=== PATIENT | female | born 1975 | race Caucasian/White ===

== ENCOUNTER 2019-10-16 20:31 | Observation (INO) ==
--- OUTSIDE RECORDS SUMMARY | 2019-10-16 20:33 | External Medical Summary | Continuity of Care Document ---
:1975 Author Name Gillian Brizuela Address Unavailable Unavailable , Care Team Providers Name Role Phone Gillian Brizuela Unavailable 1@[employer] PCP, UNKNOWN Unavailable Unavailable Problems Active medical history not documented Allergies and Adverse Reactions Allergy history not documented Medications Medications not documented Procedures Procedures not documented Immunizations Immunizations not documented Plan of Treatment Planned Observations Planned Goals not documented Results No Known Results Results not documented
--- OUTSIDE RECORDS SUMMARY | 2019-10-16 20:34 | External Medical Summary | Continuity of Care Document ---
:1975 Author Name Gillian Brizuela Address Unavailable Unavailable , Care Team Providers Name Role Phone Gillian Brizuela Unavailable 1@[email or web address] PCP, UNKNOWN Unavailable Unavailable Problems Active medical history not documented Allergies and Adverse Reactions Allergy history not documented Medications Medications not documented Procedures Procedures not documented Immunizations Immunizations not documented Plan of Treatment Planned Observations Planned Goals not documented Results No Known Results Results not documented
[2019-10-16] MEDS ORDERED: KETOROLAC TROMETHAMINE 15 MG/ML VIAL IV STA (21:00)
[2019-10-16] MEDS ORDERED: ACETAMINOPHEN 1,000 MG/100 ML VIAL IV STA (21:00)
[2019-10-16] MEDS ORDERED: SODIUM CHLORIDE 0.9% 1000ML 1,000 ML IV SCH (21:00)
[2019-10-16 21:25] LABS: Pregnancy Test, Serum Negative (Negative)
[2019-10-16 21:36] LABS: Basophils # (auto) 0.01 K/uL (0-0.2); Basophils % (auto) 0.1 %; Eosinophils % (auto) 1.3 %; Hematocrit (blood only) 44.2 % (37-47); Hemoglobin 14.7 g/dL (12.0-16.0); Immature Granulocytes # (auto) 0.02 K/uL (0.00-0.02); Immature Granulocytes % (auto) 0.3 %; Lymphocytes % (auto) 26.5 %; Mean Corpuscular Hemoglobin 30.4 pg (25-34); Mean Corpuscular Hgb Conc 33.3 g/dL (32-36); Mean Corpuscular Volume 91.3 fL (80-100); Mean Platelet Volume 12.1 fL (7.4-10.4); Monocytes # (auto) 0.72 K/uL (0.11-0.59); Monocytes % (auto) 9.1 %; Neutrophils # (auto) 4.97 K/uL (1.4-6.5); Neutrophils % (auto) 62.7 %; Platelet Count 272 K/uL (130-400); RDW Coefficient of Variation 12.9 % (11.5-14.5); RDW Standard Deviation 43.2 fL (36.4-46.3); Red Blood Count 4.84 M/uL (4.2-5.4); White Blood Count 7.92 K/uL (4.8-10.8)
[2019-10-16 21:44] LABS: D Dimer 280 ug/L FEU (0-500); Partial Thromboplastin Ratio 0.9; Partial Thromboplastin Time 24.9 Seconds (21.0-31.0); Prothrombin Time 10.5 Seconds (9.0-12.0)
[2019-10-16 21:47] LABS: Alanine Aminotransferase 19 U/L (12-78); Albumin Level 3.9 gm/dl (3.4-5.0); Aspartate Aminotransferase 18 U/L (15-37); BUN Creatinine Ratio 13.7 (10-20); Blood Urea Nitrogen 13 mg/dl (7-18); Calcium 9.1 mg/dl (8.5-10.1); Carbon Dioxide 26 mmol/L (21-32); Chloride 108 mmol/L (98-107); Est GFR (African American) 88.9; Est GFR (Non-African American) 76.7; Glucose 121 mg/dl (70-99); Lipase 135 U/L (73-393); Magnesium 2.2 mg/dl (1.8-2.4); Potassium 4.1 mmol/L (3.5-5.1); Sodium 141 mmol/L (136-145)
[2019-10-16 22:01] LABS: Alkaline Phosphatase 97 U/L (45-117); Bilirubin,Total 0.3 mg/dl (0.2-1); Globulin 3.7 gm/dl (2.5-4.0); Phosphorus 2.4 mg/dl (2.5-4.9); Total Protein 7.6 gm/dl (6.4-8.2); Troponin I 0.247 ng/ml (0-0.045)
[2019-10-16] MEDS ORDERED: NITROGLYCERIN SL 0.4 MG/TAB TAB SL STA (22:10)
[2019-10-16] MEDS ORDERED: ASPIRIN CHEW 324 MG PO STA (22:10)
[2019-10-16] MEDS ORDERED: OPTIRAY 320 125ml IV ONE (22:43)
--- NOTE | 2019-10-16 23:18 | Emergency Department Note ---
Impression & Plan Chest pain, Hypertension, PVC's (premature ventricular contractions), Elevated troponin ED Provider Note NAME: MINERVA PALAFOX AGE: 43 SEX: F ARRIVES VIA: Walk-In INFORMANT: Patient ED PROVIDER(S): Samir Babcock MD CHIEF COMPLAINT: Chest pain PLAN: Disposition: Home MEDICAL DECISION MAKING: The patient is a pleasant 43-year-old woman with a past medical history of PVCs on metoprolol who presents emerge department acute onset constant chest pressure that began around 6 PM when she was out with her family tubing being pulled by a boat and gradually became increasingly more severe and presents emergency department tearful because of the pain. Denies SOB, n/v. Increases with movement but not exertion. No change when supine. Prior to today she denies any recent illness including denies fevers, chills, cough, congestion, nausea, vomiting, diarrhea. She denies any recent pattern of similar symptoms or exertional chest pain or shortness of breath. She has no history or family history of blood clots. On arrival the patient is uncomfortable but no acute distress, afebrile with elevated blood pressure but vital signs otherwise stable. Patient's initial EKG demonstrates sinus rhythm with frequent PVCs with no overt ST elevation or depression. Chest X without acute process. WBC, H/H and platelets within normal limits. Chemistry without acidosis. Electrolytes unremarkable. LFTs unremarkable. Patient's troponin was slightly elevated at 0.247. Repeat EKG at this time again without acute ischemia. D-dimer was within normal li mits. However given the patient's pain radiating to her back a CTA was performed and was negative for dissection, PE or acute process otherwise per preliminary [employer] report. Patient given ASA and nitroglycerin. Case was discussed with Dr. De Dios with Dr. Bliss, [facility] hospitalist, who will evaluate the patient for admission. Triage Nursing notes reviewed and agree them. Prior medical records reviewed Vital Signs: reviewed and remarkable for hypertension. Differential diagnosis: Cardiac ischemia, aortic dissection, pulmonary embolism, pneumothorax, pneumonia, pericarditis, myocarditis, esophageal rupture, GERD, cholecystitis, pancreatitis, musculoskeletal, as well as other pathologies. ER treatment provided: See below. Diagnostics interpreted by me: ECG 2037: sinus rhythm with frequent PVCs, 94 bpm, no overt ST elevation or depression, QTC 492, QRS 78. ECG 2217: Normal sinus rhythm, 98 bpm, no ectopy, no overt ST elevation or depression, QTC 485, [id number] Cardiac Monitoring: An order for continuous cardiac monitoring was placed and demonstrated sinus rhythm with frequent PVCs, 94 bpm. Laboratory studies: See below Imaging studies: Preliminary Findings Only See Final Report For Complete Findings CTA CHEST: No thoracic aortic intramural hematoma, aneurysm, or dissection. No acute pulmonary embolism. CV structures are unremarkable. Clear lungs. Radiologist: Lizz Rice M.D. Study ready at 22:54 and initial results transmitted at 23:11 Consultation(s): Case was discussed with Dr. De Dios with Dr. Bliss, [facility] hospitalist, who will evaluate the patient for admission. 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 Denies SOB, n/v. Increases with movement but not exertion. No change when supine. Prior to today she denies any recent illness including denies fevers, chills, cough, congestion, nausea, vomiting, diarrhea. She denies any recent pattern of similar symptoms or exertional chest pain or shortness of breath. She has no history or family history of blood clots. ROS: See above HPI for pertinent positives & negatives. A total of [10] systems reviewed and were otherwise negative. PAST MEDICAL HISTORY:See Below PAST SURGICAL HISTORY:See Below FAMILY HISTORY:See Below SOCIAL HISTORY:See Below HOME MEDICATIONS:See Below ALLERGIES:See Below VITALS:See Below PHYSICAL EXAMINATION: GENERAL: Awake, alert, uncomfortable-appearing, in no distress HENT: Normocephalic, atraumatic. Oropharynx with dry mucous membranes and otherwise unremarkable. EYES: Normal conjunctiva. Sclera non-icteric. NECK: Supple. No nuchal rigidity. FROM. No JVD. RESPIRATORY: Clear to auscultation. CARDIAC: Regular rate, normal rhythm. Extremities warm and well perfused. Pulses equal. ABDOMEN: Soft, non-distended. No tenderness to palpation. No rebound or guarding. No masses. RECTAL: Deferred. MUSCULOSKELETAL: Chest examination reveals reproducible anterior chest wall t enderness. The back is symmetrical on inspection without obvious abnormality. There is no CVA tenderness to palpation. No joint edema. LOWER EXTREMITIES: Calves are equal size bilaterally and non-tender. No edema. No discoloration. NEURO: Normal sensorium. No sensory or motor deficits noted. SKIN: No rash or jaundice noted. Samir Babcock MD Past Med/Surg History Medical History PVC's (premature ventricular contractions) Social History Smoking Status: Never smoker Hx Alcohol Use: No Hx Substance Use: No Preferred Language: [place] Communication Ability: Effective Beliefs That Will Affect Care: None Current Living Situation: Family Other Information That Helps Us Care for You: No Feels Safe at Home: Yes Safety Concerns: Feels Safe At This Time Allergies Allergies Allergy/AdvReac Type Severity Reaction Status Date / Time brompheniramine Allergy Unknown HIVES Verified 10/16/19 21:16 Penicillins Allergy Unknown HIVES Verified 10/16/19 21:16 phenylpropanolamine Allergy Unknown HIVES Verified 10/16/19 21:16 Home Meds Home Medications Medication Instructions Recorded Confirmed metoprolol succinate 25 mg PO DAILY 10/16/19 10/16/19 Results & Data (ED) Vital Signs Vital Signs - 24 hr 10/16/19 20:33 10/16/19 21:05 10/16/19 21:13 Temperature 36.5 C Temperature Source Oral Pulse Rate 68 87 Pulse Rate from SpO2 Sensor 88 Respiratory Rate 16 20 Respiratory Effort / Characteristics Non-Labored Spontaneous Respiratory Depth Normal Respiratory Pattern Regular Blood Pressure 166/110 H 167/128 H Blood Pressure Mean 128 134 Blood Pressure Position Sitting Pulse Oximetry 98 98 100 Oxygen Delivery Method Room Air Room Air Room Air Sepsis Recent Fever Within 48 Hours No Sepsis New/Unexplained Change in Mental Status No Sepsis Action Taken by Nursing No Action Required 10/16/19 21:30 10/16/19 22:30 10/16/19 22:54 Temperature Temperature Source Pulse Rate 88 91 H 105 H Pulse Rate from SpO2 Sensor 91 H 80 104 H Respiratory Rate 17 17 19 Respiratory Effort / Characteristics Respiratory Depth Respiratory Pattern Blood Pressure 158/108 H 121/93 139/98 Blood Pressure Mean 118 98 113 Blood Pressure Position Pulse Oximetry 100 96 95 Oxygen Delivery Method Room Air Room Air Room Air Sepsis Recent Fever Within 48 Hours Sepsis New/Unexplained Change in Mental Status Sepsis Action Taken by Nursing 10/16/19 23:00 10/16/19 23:30 Temperature Temperature Source Pulse Rate 87 101 H Pulse Rate from SpO2 Sensor 87 91 H Respiratory Rate 15 20 Respiratory Effort / Characteristics Respiratory Depth Respiratory Pattern Blood Pressure 134/97 126/104 H Blood Pressure Mean 116 111 Blood Pressure Position Pulse Oximetry 96 97 Oxygen Delivery Method Room Air Room Air Sepsis Recent Fever Within 48 Hours Sepsis New/Unexplained Change in Mental Status Sepsis Action Taken by Nursing Laboratory Data Attestation: I reviewed the patient's lab results. Result diagrams: 10/16/19 20:43 10/16/19 20:43 Lab Results 10/16/19 10/16/19 10/16/19 Range/Units 20:43 20:43 20:43 WBC 7.92 (4.8-10.8) K/uL RBC 4.84 (4.2-5.4) M/uL Hgb 14.7 (12.0-16.0) g/dL Hct 44.2 (37-47) % MCV 91.3 (80-100) fL MCH 30.4 (25-34) pg MCHC 33.3 (32-36) g/dL RDW Std Deviation 43.2 (36.4-46.3) fL RDW Coeff of Maeve 12.9 (11.5-14.5) % Plt Count 272 (130-400) K/uL MPV 12.1 H (7.4-10.4) fL Immature Gran % (Auto) 0.3 % Neut % (Auto) 62.7 % Lymph % (Auto) 26.5 % [place] % (Auto) 9.1 % Eos % (Auto) 1.3 % Baso % (Auto) 0.1 % Neut # (Auto) 4.97 (1.4-6.5) K/uL Lymph # (Auto) 2.10 (1.2-3.4) K/uL [place] # (Auto) 0.72 H (0.11-0.59) K/uL Eos # (Auto) 0.10 (0-0.5) K/uL Baso # (Auto) 0.01 (0-0.2) K/uL Immature Gran # (Auto) 0.02 (0.00-0.02) K/uL PT 10.5 (9.0-12.0) Seconds INR 1.0 (0.9-1.1) APTT 24.9 (21.0-31.0) Seconds PTT Ratio 0.9 D-Dimer 280 (0-500) ug/L FEU Sodium 141 (136-145) mmol/L Potassium 4.1 (3.5-5.1) mmol/L Chloride 108 H (98-107) mmol/L Carbon Dioxide 26 (21-32) mmol/L Anion Gap 7.0 (3-11) BUN 13 (7-18) mg/dl Creatinine 0.91 (0.6-1.2) mg/dl Est Cr Clr Drug Dosing Not Reportable Est GFR ( Amer) 88.9 Est GFR (Non-Af Amer) 76.7 BUN/Creatinine Ratio 13.7 (10-20) Glucose 121 H (70-99) mg/dl Calcium 9.1 (8.5-10.1) mg/dl Phosphorus 2.4 L (2.5-4.9) mg/dl Magnesium 2.2 (1.8-2.4) mg/dl Total Bilirubin 0.3 (0.2-1) mg/dl AST 18 (15-37) U/L ALT 19 (12-78) U/L Alkaline Phosphatase 97 (45-117) U/L Troponin I 0.247 H* (0-0.045) ng/ml Total Protein 7.6 (6.4-8.2) gm/dl Albumin 3.9 (3.4-5.0) gm/dl Globulin 3.7 (2.5-4.0) gm/dl Albumin/Globulin Ratio 1.0 (0.9-2) Lipase 135 (73-393) U/L TSH 1.980 (0.300-4.500) uIu/ml HCG, Qual (Negative) 10/16/19 Range/Units 20:43 WBC (4.8-10.8) K/uL RBC (4.2-5.4) M/uL Hgb (12.0-16.0) g/dL Hct (37-47) % MCV (80-100) fL MCH (25-34) pg MCHC (32-36) g/dL RDW Std Deviation (36.4-46.3) fL RDW Coeff of Maeve (11.5-14.5) % Plt Count (130-400) K/uL MPV (7.4-10.4) fL Immature Gran % (Auto) % Neut % (Auto) % Lymph % (Auto) % [place] % (Auto) % Eos % (Auto) % Baso % (Auto) % Neut # (Auto) (1.4-6.5) K/uL Lymph # (Auto) (1.2-3.4) K/uL [place] # (Auto) (0.11-0.59) K/uL Eos # (Auto) (0-0.5) K/uL Baso # (Auto) (0-0.2) K/uL Immature Gran # (Auto) (0.00-0.02) K/uL PT (9.0-12.0) Seconds INR (0.9-1.1) APTT (21.0-31.0) Seconds PTT Ratio D-Dimer (0-500) ug/L FEU Sodium (136-145) mmol/L Potassium (3.5-5.1) mmol/L Chloride (98-107) mmol/L Carbon Dioxide (21-32) mmol/L Anion Gap (3-11) BUN (7-18) mg/dl Creatinine (0.6-1.2) mg/dl Est Cr Clr Drug Dosing Est GFR ( Amer) Est GFR (Non-Af Amer) BUN/Creatinine Ratio (10-20) Glucose (70-99) mg/dl Calcium (8.5-10.1) mg/dl Phosphorus (2.5-4.9) mg/dl Magnesium (1.8-2.4) mg/dl Total Bilirubin (0.2-1) mg/dl AST (15-37) U/L ALT (12-78) U/L Alkaline Phosphatase (45-117) U/L Troponin I (0-0.045) ng/ml Total Protein (6.4-8.2) gm/dl Albumin (3.4-5.0) gm/dl Globulin (2.5-4.0) gm/dl Albumin/Globulin Ratio (0.9-2) Lipase (73-393) U/L TSH (0.300-4.500) uIu/ml HCG, Qual Negative (Negative) Administered Medications Morphine Sulfate (Morphine Sulfate 2 Mg/Ml Carp) 0.5 mg IV Q4H PRN PRN Reason: Moderate Pain (4,5,6) on NRS Stop: 10/31/19 00:42 Last Admin: 10/17/19 00:59 Dose: 0.5 mg Documented by: [id number] Discontinued Medications Aspirin (Aspirin Chew 324 Mg) 324 mg PO NOW STA Stop: 10/16/19 22:11 Last Admin: 10/16/19 22:15 Dose: 324 mg Documented by: [id number] Sodium Chloride (Nss 1000ml) 1,000 mls @ 999 mls/hr IV .Q1H1M TOBY Stop: 10/16/19 22:00 Last Infusion: 10/16/19 22:24 Dose: 0 mls/hr Documented by: [id number] Admin: 10/16/19 21:10 Dose: 999 mls/hr Documented by: [id number] Acetaminophen (Ofirmev) 1,000 mg in 100 mls @ 400 mls/hr IV NOW STA Stop: 10/16/19 21:14 Last Infusion: 10/16/19 21:32 Dose: 0 mls/hr Documented by: [id number] Admin: 10/16/19 21:11 Dose: 400 mls/hr Documented by: [id number] Ioversol (Optiray 320 125ml) 120 ml IV ONCE ONE Stop: 10/16/19 22:44 Last Admin: 10/16/19 22:44 Dose: 120 ml Documented by: [id number] Ketorolac Tromethamine (Ketorolac Tromethamine 15 Mg/Ml Vial) 15 mg IV NOW STA Stop: 10/16/19 21:01 Last Admin: 10/16/19 21:10 Dose: 15 mg Documented by: [id number] Lidocaine (Lidocaine 5% 1 Patch) Confirm Administered Dose 1 patch TD .STK-MED ONE Stop: 10/17/19 00:04 Last Admin: 10/17/19 00:05 Dose: 1 patch Documented by: [id number] Lidocaine (Lidocaine 5% 1 Patch) 1 patch TD NOW STA Stop: 10/17/19 00:44 Last Admin: 10/17/19 01:10 Dose: Not Given Documented by: [id number] Metoprolol Succinate (Metoprolol Succ 25mg Ext Rel Tab) 25 mg PO NOW STA Stop: 10/17/19 00:44 Last Admin: 10/17/19 01:12 Dose: 25 mg Documented by: [id number] Nitroglycerin (Nitroglycerin Sl 0.4 Mg/Tab Tab) 0.4 mg SL NOW STA Stop: 10/16/19 22:11 Last Admin: 10/16/19 22:14 Dose: 0.4 mg Documented by: [id number] Blood Pressure Blood Pressure Findings: Elevated blood pressure Blood Pressure Disposition: further management by hospitalist Discharge Plan Visit Data Chief Complaint: Chest Pain Stated Complaint: chest pains ED Provider: Samir Babcock Discharge Problem: Chest pain, Hypertension, PVC's (premature ventricular contractions), Elevated troponin Patient Disposition: Admitted As Inpatient Discharge Instructions Interventions: ED Discharge Assessment Last Done: 10/17/19 00:16 Discharge Problem: Chest pain Qualifiers: Chest pain type: unspecified Qualified Code(s): R07.9 - Chest pain, unspecified
[2019-10-17] MEDS ORDERED: LIDOCAINE 5% 1 PATCH TD ONE (00:03)
--- NOTE | 2019-10-17 00:03 | History & Physical Report ---
Date of Service October 16, 2019 Assessment & Plan (1) Hypertension: (2) PVC's (premature ventricular contractions): (3) Chest pain: Cynthia Leggett is a 43-year-old female with a past medical history of hypertension and PVCs who presents with an episode of chest pain following tubing. Chest pain, low suspicion for ACS Patient with central chest pain reproducible on palpation and worsened with inspiration following recreational tubing Mild troponin elevation to 0.247, no ischemic EKG changes observed while patient was continuing to have pain CTA with no acute findings, no sign of dissection or cardiac effusion. TTE pending, cards consulted Deceived aspirin and nitro in ED. Chest pain not improved with nitro ED. Differential includes cardiac contusion in the setting of recreational activity Trend troponins BMP, CBC in morning Heparinization not indicated at this time Pain control with Tylenol, lidocaine patch, scaled morphine for breakthrough if needed Avoid NSAIDs History of PVCs Prior echo 3 years ago, history of PVCs with by and trigeminy Controlled with metoprolol 25 mg daily, no recent symptoms Continue metoprolol succinate 25 mg daily Hypertension Continue metoprolol as above Diet: Regular DVT prophylaxis: SCDs, defer pharmacal prophylaxis at this time CODE STATUS: Full code Disposition: Med/surgical with telemetry History of Present Illness Chief Complaint: Chest Pain Primary Care Provider: Keyana Orellana DO Cynthia Leggett is a 43-year-old female with a past medical history of hypertension and PVCs who presents with an episode of chest pain following tubing. Patient reports that she was recreationally tubing on a hickey for at least 10 minutes 3 hours prior to presentation. After getting off the tube she noticed that she had chest pain "like an elephant sitting on her chest. The pain was not associated with shortness of breath or diaphoresis, although she notes that pain while inspiring gave her a sense of difficulty breathing. Her pain was worsened with deep breaths and movement. Her pain is improved with rest. She has not attempted any treatments. Pain continued to persist and she noticed that she is having increased pain while talking on the phone and became concerned and presented to the ED for further evaluation. She has a history of PVCs on metoprolol without any current recurrence of symptoms. Last echo approximately 3 years ago without concerning findings. She denies palpitations, syncope, presyncope, numbness, tingling, cough, fever, chills, sweats, abdominal pain, and GI symptoms. At time of bedside assessment she continues to have pain in the center of her chest with some spread to her back, but which has not radiated into her neck, shoulder, or arm. Medical history: Reviewed Surgical history: Reviewed Allergies: Reviewed Medications: Reviewed, Toprol daily Social: Lives at home with her and family. Social alcohol use. Denies tobacco use and recreational drug use. Independently ambulatory. CODE STATUS: Full code Allergies Allergy/AdvReac Type Severity Reaction Status Date / Time brompheniramine Allergy Unknown HIVES Verified 10/16/19 21:16 Penicillins Allergy Unknown HIVES Verified 10/16/19 21:16 phenylpropanolamine Allergy Unknown HIVES Verified 10/16/19 21:16 Home Medications Home Medications Medication Instructions Recorded Confirmed Type metoprolol succinate 25 mg PO DAILY 10/16/19 10/16/19 History Past Med/Surg History Medical History PVC's (premature ventricular contractions) Social History Smoking Status: Never smoker Hx Alcohol Use: No Hx Substance Use: No Preferred Language: Turkmen Communication Ability: Effective Beliefs That Will Affect Care: None Current Living Situation: Family Other Information That Helps Us Care for You: No Feels Safe at Home: Yes Safety Concerns: Feels Safe At This Time Review of Systems Review of Systems: Constitutional: Denies fever, chills, malaise, weight change Eyes: Denies vision change ENT: Denies ear pain, sore throat, sinus pain Cardiovascular: See HPI Respiratory: See HPI, denies cough, sputum production, difficulty breathing Gastrointestinal: Denies abdominal pain, nausea, vomiting, constipation, diarrhea Genitourinary: Denies urinary symptoms Musculoskeletal: Denies weakness, focal muscle aches/pain, joint aches/pain other than noted in chest pain section Integumentary:Denies rash, lesions, bruising Neurological: Denies headache, numbness, tingling, focal weakness Physical Exam Physical Exam: General: A&Ox3. NAD. Cooperative. HEENT: Atraumatic, normocephalic. Pupils equal and reactive to light and accommodation. MM moist. Pulm: CTAB A&P. -wheezes, -rales, -rhonchi. Symmetrical chest rise. No increase work of breathing. No respiratory distress. Cardiac: RRR, -mrg. Radial pulses intact and symmetrical. No JVD appreciated. Thorax: Tender to palpation over mid sternum, tenderness decreases laterally. Palpation reproduces/worsens pain presented with. No bruising or hematoma appreciated. No fluctuance. No crepitus. Abdominal: Nontender, nondistended, soft. Extremities: Warm, dry. 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 Sensation to soft touch intact in fingertips and toes bilaterally without asymmetry or deficit. PT pulse intact and symmetrical. Results & Data Results & Data ([facility]) Vital Signs (Past 12 Hours) Vital Signs Temp Pulse Resp BP Pulse Ox 10/16/19 23:00 87 15 134/97 96 10/16/19 22:54 105 H 19 139/98 95 10/16/19 22:30 91 H 17 121/93 96 10/16/19 21:30 88 17 158/108 H 100 10/16/19 21:13 87 20 167/128 H 100 10/16/19 21:05 98 10/16/19 20:33 36.5 C 68 16 166/110 H 98 Code Status & VTE Plan VTE Prophylaxis Plan VTE Prophylaxis will be ordered: Yes Supervising Physician Co-Signing Physician Notes Attending addendum: I have physically seen this patient, have supervised the medical residents activities, and agree with the H&P unless as otherwise noted. Assessment and Plan: Chest pain/likely cardiac contusion/PVCs/hypertension- Different additional differential includes myopericarditis, acute coronary syndrome etc. The patient will be admitted to telemetry for serial cardiac enzymes, serial EKG's, cardiac rhythm monitoring and a 2-D echocardiogram with Dopplers. Troponin elevated 0.247 History of PVCs, with bigeminy and trigeminy history. Continue metoprolol succinate 25 mg p.o. daily. Consult cardiology Remainder of orders and notations as noted Resident Activity Tracking Resident Involvement: Resident Care Provided Care Provided: Adult [facility]
[2019-10-17] MEDS ORDERED: LIDOCAINE 5% 1 PATCH TD STA (00:43)
[2019-10-17] MEDS ORDERED: METOPROLOL SUCC 25MG EXT REL TAB PO STA (00:43)
[2019-10-17] MEDS ORDERED: ACETAMINOPHEN 325 MG TAB PO PRN (00:43)
[2019-10-17] MEDS ORDERED: MoRPHine SULFATE 2 MG/ML CARP IV PRN ×2 (00:43→00:54)
--- NOTE | 2019-10-17 07:20 | XRay Report ---
SINGLE VIEW CHEST CLINICAL HISTORY: Atypical chest pain. FINDINGS: An AP, portable, upright chest radiograph is compared to study dated 07/01/2015. The cardiome diastinal silhouette is unremarkable. The lungs and pleural spaces are clear. No pneumothorax is seen . The bony thorax is grossly intact. IMPRESSION: No active disease in the chest. ACT 112: Negative or not required by law. Electronically signed by: Abhi Arteaga M.D. 10/17/2019 7:19 AM
[2019-10-17] MEDS ORDERED: Nursing to Pharmacy Communication SCH (08:45)
--- NOTE | 2019-10-17 08:46 | CT Scan Report ---
CT ANGIOGRAPHY OF THE CHEST DISSECTION PROTOCOL CLINICAL HISTORY: Chest pain. Evaluate for dissection. COMPARISON STUDY: Chest radiographs July 01, 2015 and October 16, 2019. TECHNIQUE: Before and following the IV administration of 120 mL of Optiray-320, helical axial images of the chest were obtained. Maximal intensity projections and sagittal and coronal reformats were vi ewed on an independent 3D workstation. IV contrast was administered without complication. Automated exposure control was utilized for the study. A dose lowering technique was utilized adhering to the principles of ALARA. CT DOSE: 1224.45 mGy.cm FINDINGS: Caliber of the thoracic aorta is normal. There is no intramural hematoma or dissection wit hin the thoracic aorta. The size of the heart is normal. No pulmonary embolus is identified. No enlar ged axillary, mediastinal or hilar lymph nodes are present. The central airways are patent. There is no consolidation to suggest pneumonia. There is mild interlobular septal thickening. No pneumothorax or pleural effusion is noted. Bony thorax and upper abdomen are unremarkable. IMPRESSION: 1. No thoracic aortic dissection. 2. No pulmonary embolus. 3. No consolidation to suggest pneumonia. 4. Mild interlobular septal thickening which suggests interstitial pulmonary edema. This finding will be called/faxed to the provider at time of dictation. ACT 112: Negative or not required by law. Electronically signed by: Brooks Anderson M.D. 10/17/2019 8:45 AM
[2019-10-17] MEDS ORDERED: METOPROLOL SUCC 25MG EXT REL TAB PO SCH ×2 (09:00→21:00)
--- NOTE | 2019-10-17 10:47 | XCELERA ---
[id number]
--- NOTE | 2019-10-17 11:07 | Cardiology Consultation ---
Date of Consultation October 17, 2019 Assessment & Plan (1) Chest pain: -secondary to musculoskeletal injury and cardiac contusion. (2) Cardiac contusion: -apical wall motion abnormality noted on echocardiogram. -fortunately, LVEF is normal. -will repeat an echocardiogram as an outpatient in several weeks. -would watch on telemetry an additional 24 hours. (3) Elevated troponin: -mild troponin elevation secondary to cardiac contusion. -troponin peaked at 1.22 and is now trending down. (4) PVC's (premature ventricular contractions): -history frequent PVCs prior to this event. History of Present Illness Attending Physician: Martín Gabriel DO History of Present Illness Mrs. Sterling is a healthy 43-year-old female admitted yesterday with a chest pain syndrome and elevated troponin I. This consultation was ordered to assist in cardiac management. The patient was in her usual state of health until yesterday evening. She and her were out boating with friends. The patient then went tubing behind the boat for total of 30 minutes. She was prone on the inner tube with her arms underneath, and her chest on top of the inner tube. When she got out of the water, she noticed a pressure type sensation across her mid chest in area where she had been resting on the inner tube. The discomfort became quite intense and was worse with deep breathing and talking. There was no shortness of breath, n ausea, vomiting, diaphoresis, or radiation of the discomfort. The patient became quite concerned and asked her to take her to the emergency room for further evaluation. On arrival here, the patient was given sublingual nitroglycerin without change in her discomfort. She was eventually given morphine which did improve her symptoms. Her initial troponin was elevated 0.247, however, EKG failed to show significant abnormalities. A CT scan of chest showed no evidence of aortic dissection or pulmonary embolism. Hospitalization was recommended. The patient has never known of a cardiac event. She has never experienced exertional angina pectoris or limiting dyspnea. She further denies syncope, presyncope, PND, orthopnea, lower extremity edema, and claudication. The patient does carry history of frequent PVCs treated with long-acting metoprolol succinate. Currently, patient is resting comfortably in bed and only notes minor midsternal chest discomfort. Past medical and surgical history 1. Hypertension 2. Borderline LVH 3. Frequent PVCs 4. Cholecystectomy Social history and lives with her and their 3 girls. Works as a preschool community organization aide. No tobacco Social alcohol Family history Mother 66 with hypertension. Father 68 and healthy She has a brother who is healthy. Review of systems A 10 point review systems was negative except for that described above. Allergies Allergy/AdvReac Type Severity Reaction Status Date / Time brompheniramine Allergy Unknown HIVES Verified 10/16/19 21:16 Penicillins Allergy Unknown HIVES Verified 10/16/19 21:16 phenylpropanolamine Allergy Unknown HIVES Verified 10/16/19 21:16 Home Medications Home Medications Medication Instructions Recorded Confirmed Type metoprolol succinate 25 mg PO DAILY 10/16/19 10/16/19 History Patient History Medical History PVC's (premature ventricular contractions) Social History Smoking Status: Never smoker Hx Alcohol Use: No Hx Substance Use: No Preferred Language: Malian Communication Ability: Effective Beliefs That Will Affect Care: None Current Living Situation: Family Other Information That Helps Us Care for You: No Feels Safe at Home: Yes Safety Concerns: Feels Safe At This Time Physical Exam Physical Exam: In general this is a well-developed well-nourished white female in no acute distress. HEENT exam is negative. Neck is supple with full carotid upstrokes. There are no carotid bruits. Jugular venous pressure is flat at 90. There is no thyromegaly. Cardiovascular exam reveals a regular rhythm with a normal S1 and S2. No S3, S4, or murmurs are noted. Chest notes some tenderness to palpation mid parasternal region bilaterally. Lungs are clear without rales, rhonchi, or wheezes. Abdomen is soft and nontender without bruits. Extremities reveal intact radial artery and posterior tibial pulses bilaterally. There is no peripheral edema. Results & Data ([facility]) Vital Signs (Past 12 Hours) Vital Signs Temp Pulse Pulse Pulse Resp BP BP 10/17/19 07:38 97 H 10/17/19 07:18 36.7 C 64 16 144/105 H 10/17/19 04:55 36.8 C 69 18 138/93 10/17/19 02:21 36.6 C 16 161/104 H 10/16/19 23:56 90 24 148/113 H 10/16/19 23:30 101 H 20 126/104 H 10/16/19 23:00 87 15 134/97 10/16/19 22:54 105 H 19 139/98 Pulse Ox 10/17/19 07:38 10/17/19 07:18 97 10/17/19 04:55 95 10/17/19 02:21 10/16/19 23:56 96 10/16/19 23:30 97 10/16/19 23:00 96 10/16/19 22:54 95 Laboratory Results CBC notes hemoglobin of 14.7, hematocrit 44.2, white count 7.9, platelet count [id number]. Electrolytes note a sodium of 141, potassium 4.1, chloride 108, bicarb 26, BUN 13, creatinine 0.9, glucose of 121. Initial troponin was 0.247 with a follow-up value of 1.22. Diagnostic Findings EKGs note normal sinus rhythm, PVCs, left atrial abnormality, and a right-sided conduction delay. One tracing had an elevated QTc interval. Echocardiogram notes normal left ventricular systolic function with ejection fraction of 50- 55%. There is severe hypokinesis of the apex without thrombus. There is borderline LVH. Chest x-ray shows no acute disease. Chest CT showed no evidence of aortic dissection or pulmonary embolism. PG Care Time/CCT Total # of Minutes Spent Total Time Spent with Patient: Total time spent is greater than 50% in coordination of care (as documented) at patient's floor/unit and/or counseling patient: Coding Level of Care Code 15359 Office/OBS Consult Lvl 4 Diagnoses Chest pain R07.9 Chest pain type: unspecified Cardiac contusion S26.91XA Elevated troponin R79.89 PVC's (premature ventricular contractions) I49.3 (1) Chest pain Chest pain type: unspecified Qualified Code(s): R07.9 - Chest pain, unspecified
--- NOTE | 2019-10-17 12:49 | Electrocardiogram Report ---
Test Reason : Blood Pressure : / mmHG Vent. Rate : 094 BPM Atrial Rate : 094 BPM P-R Int : 160 ms QRS Dur : 078 ms QT Int : 394 ms P-R-T Axes : 063 008 052 degrees QTc Int : 492 ms Sinus rhythm with frequent Premature ventricular complexes Left atrial enlargement Prolonged QT Abnormal ECG When compared with ECG of 01-JUL-2015 09:15, No significant change was found Confirmed by Yonathan Hernández ([id number]) on 10/17/2019 12:49:01 PM Referred By: REFERRED SELF Confirmed By:Yonathan Hernández
--- NOTE | 2019-10-17 12:52 | Electrocardiogram Report ---
Test Reason : Blood Pressure : / mmHG Vent. Rate : 090 BPM Atrial Rate : 090 BPM P-R Int : 144 ms QRS Dur : 088 ms QT Int : 428 ms P-R-T Axes : 038 -22 028 degrees QTc Int : 523 ms Sinus rhythm with frequent Premature ventricular complexes Prolonged QT Abnormal ECG When compared with ECG of 16-OCT-2019 22:18, (unconfirmed) Premature ventricular complexes are now Present Confirmed by Yonathan Hernández ([id number]) on 10/17/2019 12:51:59 PM Referred By: REFERRED SELF Confirmed By:Yonathan Hernández
--- NOTE | 2019-10-17 12:52 | Electrocardiogram Report ---
Test Reason : Blood Pressure : / mmHG Vent. Rate : 098 BPM Atrial Rate : 098 BPM P-R Int : 164 ms QRS Dur : 078 ms QT Int : 380 ms P-R-T Axes : 055 000 054 degrees QTc Int : 485 ms Normal sinus rhythm Possible Left atrial enlargement RSR' or QR pattern in V1 suggests right ventricular conduction delay Borderline ECG When compared with ECG of 16-OCT-2019 20:38, (unconfirmed) Premature ventricular complexes are no longer Present Confirmed by Yonathan Hernández ([id number]) on 10/17/2019 12:51:44 PM Referred By: REFERRED SELF Confirmed By:Yonathan Hernández
--- NOTE | 2019-10-17 19:59 | Hospitalist Progress Note ---
Date of Service October 17, 2019 Assessment & Plan (1) Cardiac contusion: chest pain, troponin, echo findings c/w cardiac contusion - likely from aggressive bouncing/repeated low-grade chest trauma from tubing -fortunately stable, troponin trending down -follow into tomorrow but if no arrythmia then likely safe for home -d/w cardiology - no clear benefit for anticoagulation and wall motion likely to improve quickly (2) Hypertension: elevated BP - pt notes that she does maybe run a little high but nothing like this --> suspect a lot is situational. continue to follow - but more importantly will have f/u w home monitoring (3) PVC's (premature ventricular contractions): continue metoprolol (4) DVT prophylaxis: ambulation (5) Discharge planning issues: anticipate home in AM w outpt echo ~2wks Admission and Anticipated Discharge Date Admission Date: October 16, 2019 Subjective tubing yesterday - shortly after some chest pain - but thought she could just stretch it out. later chest really started to hurt/tightness/felt hard to breathe (although not truly SOB) - came to ER. trop noted today feeling better - pressure still there - but not nearly as intense as yesterday Review of Systems Review of Systems: All systems reviewed & are unremarkable except as noted in HPI & below Physical Exam Physical Exam: gen aaox3 pleasant nad heent nc at mmm breathing unlabored no accesssory muscles good effort skin no rashes no pallor or icterus. msk/ost - surprisingly no rib dysfunction noted Results & Data Results & Data ([facility]) Vital Signs (Past 12 Hours) Vital Signs Temp Pulse Pulse Resp BP Pulse Ox 10/17/19 19:35 98.2 F 88 20 149/106 H 97 10/17/19 16:36 94 H 10/17/19 15:19 98.8 F 95 H 18 148/104 H 97 10/17/19 11:10 97.3 F L 82 16 145/104 H 96 PG Care Time/CCT Total # of Minutes Spent Total Time Spent with Patient: Total time spent is greater than 50% in coordination of care (as documented) at patient's floor/unit and/or counseling patient: Coding Level of Care Code 59984 Subseq Obs Care Lvl 3 Diagnoses Cardiac contusion S26.91XA Hypertension I10 PVC's (premature ventricular contractions) I49.3 DVT prophylaxis Z29.9 Discharge planning issues Z02.9
--- NOTE | 2019-10-18 06:30 | Billing Data ---
Date of Service October 18, 2019 Coding Level of Care Code 03324 Initial Inpt Care Lvl 2
[2019-10-18] MEDS ORDERED: LIDOCAINE 5% 1 PATCH TD SCH (09:00)
--- NOTE | 2019-10-18 19:10 | Discharge Summary ---
Date of Service October 18, 2019 Admission HPI Per Admitting Provider Cynthia Leggett is a 43-year-old female with a past medical history of hypertension and PVCs who presents with an episode of chest pain following tubing. Patient reports that she was recreationally tubing on a hickey for at least 10 minutes 3 hours prior to presentation. After getting off the tube she noticed that she had chest pain "like an elephant sitting on her chest. The pain was not associated with shortness of breath or diaphoresis, although she notes that pain while inspiring gave her a sense of difficulty breathing. Her pain was worsened with deep breaths and movement. Her pain is improved with rest. She has not attempted any treatments. Pain continued to persist and she noticed that she is having increased pain while talking on the phone and became concerned and presented to the ED for further evaluation. She has a history of PVCs on metoprolol without any current recurrence of symptoms. Last echo approximately 3 years ago without concerning findings. She denies palpitations, syncope, presyncope, numbness, tingling, cough, fever, chills, sweats, abdominal pain, and GI symptoms. At time of bedside assessment she continues to have pain in the center of her chest with some spread to her back, but which has not radiated into her neck, shoulder, or arm. Medical history: Reviewed Surgical history: Reviewed Allergies: Reviewed Medications: Reviewed, Toprol daily Social: Lives at home with her and family. Social alcohol use. Denies tobacco use and recreational drug use. Independently ambulatory. CODE STATUS: Full code Principal Diagnosis cardiac contusion Discharge Exam gen aaox3 pleasant nad heent nc at mmm breathing unlabored no accessory muscles good effort skin no rashes no pallor or icterus neuro no focal deficits Discharge Data Allergies Allergy/AdvReac Type Severity Reaction Status Date / Time brompheniramine Allergy Unknown HIVES Verified 10/16/19 21:16 Penicillins Allergy Unknown HIVES Verified 10/16/19 21:16 phenylpropanolamine Allergy Unknown HIVES Verified 10/16/19 21:16 Consultations 10/16/19 23:25 ED Decision to Admit Stat 10/17/19 00:43 Consult Cardiology Routine Ordered Studies 10/16/19 22:11 CT angio chest dissec wo/w con Urgent Hospital Course (1) Cardiac contusion: stable for home asa 81mg daily for now repeat echo ~2wks metoprolol as per home regimen (2) Hypertension: metoprolol; but f/u BP at home frequently/randomly - then if additional meds needed can be added (3) PVC's (premature ventricular contractions): asymptomatic - on metoprolol Total Time Total Time Spent Total Time Spent (In Minutes): >30 Discharge Plan Discharge Items Patient Disposition: Home - Self-Care Reason For Visit: CHEST PAIN Discharge Diagnosis: tubing related cardiac contusion Activity: Resume your previous activity Activity Comment: refrain from tubing for at least 4 weeks Non-emergency contact: Primary Care Provider and Manager Game Call non-emergency contact if: you have any medication questions and your symptoms worsen Follow-up/Referrals: Keyana Orellana DO [Primary Care Provider] - Diet: Regular Addtl Attending Provider Instructions: cardiac contusion -due to repeated impacts while tubing, your symptoms occurred due to a cardiac contusion -while you do have a small area of your heart that is stunned and not squeezing at this time, fortunately these situations do recover -take it easy until your echo follow up shows myocardial recovery - but "take it easy" will really be a moving target where you can let your symptoms be your guide --> if you're feeling good/feeling no chest pressure/no untoward shortness of breath, then you can do more - but for now if you're feeling any of those symptoms we would recommend that you slow down/rest/stop what you're doing. it's quite likely that this "ceiling" will move up more or less every day -in the future, consider a seated position while riding a tube, so as to avoid recurrent trauma -take an 81mg aspirin daily until your echo shows recovery (or longer if Dr Suze matute directs you to do so) elevated blood pressure -as we discussed, your elevated blood pressure while here in the hospital was just as likely reactive to the pain/stress/lack of sleep as it was actually running hypertensive - it's fairly impossible to sort that out in this context. ideally, check blood pressures at home (randomly, different times of day and different circumstances) 4-5 times a week to get a good feel for your range - from there if you're actually running high persistently then Dr Orellana can guide you on next steps Pending Studies at Discharge: No Stand-Alone Forms: [employer], Work/School Release (Inpt), Smoking Cessation Medications and DC Order Prescriptions: New aspirin [Aspir-81] 81 mg tablet,delayed release (DR/EC) 81 mg PO DAILY Qty: 30 RF: 0 Continued metoprolol succinate 25 mg tablet extended release 24 hr 25 mg PO DAILY RF: 0 Discharge Orders: Discharge Order (Routine); Ordered 10/18/19 Ordered By: Martín Gabriel Admission Data Admit Date/Time: 10/16/19 23:48 Attending Provider: Martín Gabriel Admit Provider: Randall De Dios Primary Care Provider: Keyana Orellana Other Providers: Db Bliss ; Eric Dailey Other Interventions: Discharge Summary Assessment (RN) Last Done: 10/18/19 09:52 Coding Level of Care Code 17217 OBS Care - Discharge Diagnoses Cardiac contusion S26.91XA Hypertension I10 PVC's (premature ventricular contractions) I49.3
== END 2019-10-18 10:25 | disposition home or self-care (01) ==
LOC: 2W 20:31 → ED 20:31 → SUATTDRO 23:48 → 2W 10-17 00:16